=== PATIENT | female | born 1970 | race American Indian/Alaskan Native ===

== ENCOUNTER 2017-07-13 09:30 | Emergency (ER) | payer SELFPAY | END 2017-07-13 09:31 | disposition left against medical advice (07) | LOC: ED 09:30 | DX: Z53.21 Procedure and treatment not carried out due to patient leaving prior to being seen by health care provider (principal) ==

== ENCOUNTER 2018-11-16 09:25 | Emergency (ER) | payer BC ==
[2018-11-16 09:36] VITALS: BP 139/81
--- NOTE | 2018-11-16 10:47 | Emergency Department Report ---
Abscess Boil HPI - HPI Chief Complaint: Skin/Abscess/Foreign Body Stated Complaint: SWOLLEN HEAD Time Seen by Provider: 11/16/18 10:31 Duration: 3 Days Location: Head Severity: Moderate History: Yes Pain, Yes Purulent Drainage, Yes Previous History, No Numbness, No Foreign Body, No Insect Bite HPI: Ms. Young is a very pleasant 48-year-old female who has a scalp abscess with worsening facial swelling. She had purulent drainage last night after warm compresses. She was evaluated at [facility] which prescribed Bactrim and tramadol. She is concerned for increasing throbbing sensation at an swelling at the right forehead. She has had 4 doses of Bactrim thus far. She did have previous staph infection. Home Medications: Previous Rx's Medication Instructions Recorded Last Taken Type Clindamycin [Clindamycin CAP] 300 mg PO Q8H 7 Days #21 cap 11/16/18 Unknown Rx Allergies/Adverse Reactions: Allergies Allergy/AdvReac Type Severity Reaction Status Date / Time Penicillins Allergy Unknown Verified 11/16/18 09:29 ED Review of Systems ROS: Stated complaint: SWOLLEN HEAD Other details as noted in HPI Constitutional: denies: fever, malaise Eyes: denies: eye pain, eye discharge, vision change Respiratory: denies: cough Cardiovascular: denies: chest pain Skin: rash, lesions, change in color ED Past Medical Hx - Past Medical History Previous Medical History?: No - Surgical History Past Surgical History?: Yes Additional Surgical History: x 3 - Social History Smoking Status: Never Smoker Substance Use Type: None - Medications Home Medications: Home Medications Medication Instructions Recorded Confirmed Last Taken Type Clindamycin [Clindamycin CAP] 300 mg PO Q8H 7 Days #21 cap 11/16/18 Unknown Rx ED Abscess Boil Physical Exam - Exam General: Vital signs noted. No distress. Alert and acting appropriately. Size: 2 cm Exam: Yes Tenderness, Yes Fluctuance, Yes Surrounding Cellulites/Erythema, Yes Normal Circulation, No Lymphangitis, No Crepitation Exam: 2 cm flat abscess with central postural, swelling involving the right forehead and right temporal region ED Course Vital Signs 11/16/18 09:29 Temperature 98.8 F Pulse Rate 104 H Respiratory 16 Rate Blood Pressure 139/81 O2 Sat by Pulse 98 Oximetry Critical care attestation.: If time is entered above; I have spent that time in minutes in the direct care of this critically ill patient, excluding procedure time. ED Medical Decision Making - Medical Decision Making Ms. Young presents with a scalp abscess resulting in facial cellulitis. I have added clindamycin to her regimen. She was given IM clindamycin and by mouth analgesia in the ED. Recommended continuing warm compress therapy. Incision and drainage is not indicated at this time due to size of actively draining abs cess. ED Disposition Clinical Impression: Facial cellulitis, Scalp abscess Disposition: TO HOME OR SELFCARE Is pt being admited?: No Does the pt Need Aspirin: No Condition: Stable Instructions: Abscess (ED), Cellulitis (ED) Prescriptions: Clindamycin [Clindamycin CAP] 300 mg PO Q8H 7 Days #21 cap
[2018-11-16] MEDS ORDERED: CLEOCIN IM ONE (10:48)
[2018-11-16] MEDS ORDERED: NORCO 5/325 PO ONE (10:50)
== END 2018-11-16 13:00 | disposition home or self-care (01) ==
LOC: ED 09:25
DX: L03.811 Cellulitis of head [any part, except face] (principal); Z88.0 Allergy status to penicillin
CPT/HCPCS: 96372; 99282

== ENCOUNTER 2019-09-19 12:41 | Emergency (ER) | payer BC, OTHER ==
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
[2019-09-19 13:17] VITALS: BP 142/86
[2019-09-19] MEDS ORDERED: ACETAMINOPHEN 325 MG TAB PO ONE (13:19)
[2019-09-19] MEDS ORDERED: ACETAMINOPHEN 325 MG TAB ONE (13:21)
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
== END 2019-09-19 16:05 | disposition home or self-care (01) ==
LOC: ED 12:41
DX: M79.18 Myalgia, other site (principal)
CPT/HCPCS: 99283